=== PATIENT | female | born 1960 | race African-American/Black ===

== ENCOUNTER 2016-11-15 00:30 | Inpatient (IN) | payer MEDICAID ==
[~2016-11-15] VITALS: Ht 170.2 cm; Wt 153.3 kg
[2016-11-15] VITALS (7 sets, daily range): BP systolic 111–176; BP diastolic 29–124
[2016-11-15] MEDS ORDERED: MORPHINE SULFATE 4 MG/ML CPJ (NOT FOR IM USE) IV STA (01:33)
[2016-11-15] MEDS ORDERED: ONDANSETRON HCL 4MG/2ML VIAL IV STA (01:33)
[2016-11-15 01:55] LABS: BASOPHILS % 0.2 % (0.0-2.0); EOSINOPHILS % 1.2 % (0.0-5.0); HEMATOCRIT. 32.8 % (36.0-48.0); HEMOGLOBIN. 10.4 g/dL (12.0-16.0); LYMPHOCYTES % 7.2 % (20.0-50.0); MEAN CORPUSCULAR HEMOGLOBIN 27.3 pg (28.0-32.0); MEAN CORPUSCULAR VOLUME 86.1 fL (81.0-99.0); MONOCYTES % 6.2 % (2.0-8.0); NEUTROPHILS % 85.2 % (40.0-76.0); PLATELET 261 x1000/uL (130-400); RED BLOOD CELL COUNT 3.81 mill/uL (4.2-5.4); RED CELL DISTRIBUTION WIDTH 19.2 % (11.6-14.6)
[2016-11-15 02:14] LABS: CARBON DIOXIDE 26 mEq/L (21-32); CHLORIDE 107 mEq/L (98-107); TROPONIN I 0.12 ng/mL (0.00-0.04)
[2016-11-15] MEDS ORDERED: VANCOMYCIN 1 G PREMIX 200 ML IV NR (02:45)
[2016-11-15] MEDS ORDERED: PIPERACILLIN/TAZ 3.375G PREMIX 50 ML IV NR (02:45)
[2016-11-15 03:34] LABS: BG BASE EXCESS -1.6 mmol/L (-2.0-2.0); BG CARBOXYHEMOGLOBIN 1.7 % (0.5-1.5); BG DEOXYHEMOGLOBIN 13.2 % (0.0-5.0); BG FRACTION INSPIRED OXYGEN 36; BG HCO3 ACT 25.5 mmol/L (22.0-26.0); BG METHEMOGLOBIN 0.3 % (0.0-1.5); BG OXYGEN SATURATION 86.5 % (92.0-98.5); BG OXYHEMOGLOBIN 84.8 % (94.0-97.0); BG PH 7.292 (7.350-7.450); BG PO2 58.8 mmHg (75.0-100.0); BG SAMPLE SITE RIGHT BRACHIAL; BG TOTAL HEMOGLOBIN 11.4 g/dL (12.0-18.0); BG VENT MODE MASK - VENTI
[2016-11-15 09:38] LABS: GLUCOSE URINE NEGATIVE (NEGATIVE); KETONES URINE NEGATIVE (NEGATIVE); LEUKOCYTE ESTERASE URINE 1+ (NEGATIVE); NITRITE URINE POSITIVE (NEGATIVE); OCCULT BLOOD URINE 1+ (NEGATIVE); PROTEIN URINE 3+ (NEGATIVE); SPECIFIC GRAVITY URINE 1.016 (1.005-1.030); UROBILINOGEN URINE 0.2 E.U./dL (0.2-1.0)
[2016-11-15 09:41] LABS: CLARITY URINE HAZY (CLEAR); COLOR URINE YELLOW (YELLOW)
[2016-11-15] MEDS ORDERED: FUROSEMIDE 40MG/4ML VIAL IVP SCH (10:00)
[2016-11-15 10:35] LABS: BG BASE EXCESS 2.1 mmol/L (-2.0-2.0); BG BILEVEL POS AIRWAY PRESSURE 15/5; BG CARBOXYHEMOGLOBIN 1.1 % (0.5-1.5); BG DEOXYHEMOGLOBIN 3.6 % (0.0-5.0); BG FRACTION INSPIRED OXYGEN 50; BG HCO3 ACT 30.5 mmol/L (22.0-26.0); BG METHEMOGLOBIN 0.1 % (0.0-1.5); BG OXYGEN SATURATION 96.4 % (92.0-98.5); BG OXYHEMOGLOBIN 95.2 % (94.0-97.0); BG PCO2 68.3 mmHg (35.0-45.0); BG PH 7.268 (7.350-7.450); BG PO2 96.6 mmHg (75.0-100.0); BG SAMPLE SITE RIGHT RADIAL; BG TOTAL HEMOGLOBIN 11.4 g/dL (12.0-18.0); BG VENT MODE MASK - BIPAP; BG VENT RATE 16 set
[2016-11-15] MEDS ORDERED: MAGNESIUM/ALUMINUM HYDROXIDE/SIMETHICONE 30ML UDC PO PRN (11:30)
[2016-11-15] MEDS ORDERED: DOCUSATE SODIUM 100MG CAPSULE PO PRN (11:30)
[2016-11-15] MEDS ORDERED: ACETAMINOPHEN 325MG TABLET PO PRN (11:30)
[2016-11-15] MEDS ORDERED: ONDANSETRON HCL 4MG/2ML VIAL IV PRN (11:30)
[2016-11-15] MEDS ORDERED: IPRATROPIUM/ALBUTEROL 0.5-3(2.5)MG/3ML NEB INH PRN (11:30)
[2016-11-15 13:03] LABS: HEPATITIS B SURFACE ANTIGEN NEGATIVE
[2016-11-15 13:31] LABS: HEPATITIS B CORE AB IGM NEGATIVE
[2016-11-15 13:33] LABS: HEPATITIS A AB IGM NEGATIVE (NEGATIVE)
[2016-11-15 14:36] LABS: *AMPHETAMINES SCREEN URINE NEGATIVE (NEGATIVE); *BARBITURATES SCREEN URINE NEGATIVE (NEGATIVE); *BENZODIAZEPINES SCREEN URINE NEGATIVE (NEGATIVE); *COCAINE SCREEN URINE NEGATIVE (NEGATIVE); CANNABINOID URINE SCREEN NEGATIVE (NEGATIVE); METHADONE URINE SCREEN NEGATIVE (NEGATIVE); OPIATES URINE SCREEN PRESUMTIVE POSITIVE (NEGATIVE); PHENCYCLIDINE URINE SCREEN NEGATIVE (NEGATIVE)
[2016-11-15] MEDS: METHYLPREDNISOLONE SOD SUCC 40 MG/ML VIAL IV SCH ×2 (15:23→21:35)
[2016-11-15] MEDS: AZITHROMYCIN 500 MG TABLET PO SCH (15:23)
[2016-11-15] MEDS: LISINOPRIL 10MG TABLET PO SCH (15:24)
[2016-11-15] MEDS: ENOXAPARIN 40MG/0.4ML SYR SUBCUT SCH (15:25)
[2016-11-15] MEDS ORDERED: LEVOFLOXACIN 750MG PREMIX 150 ML IV SCH (16:00)
[2016-11-15] MEDS: FUROSEMIDE 40MG/4ML VIAL IVP SCH (17:50)
[2016-11-15 17:55] LABS: BG BASE EXCESS 2.5 mmol/L (-2.0-2.0); BG BILEVEL POS AIRWAY PRESSURE 18/8; BG CARBOXYHEMOGLOBIN 0.7 % (0.5-1.5); BG DEOXYHEMOGLOBIN 7.5 % (0.0-5.0); BG FRACTION INSPIRED OXYGEN 40; BG HCO3 ACT 29.6 mmol/L (22.0-26.0); BG METHEMOGLOBIN 0.3 % (0.0-1.5); BG OXYGEN SATURATION 92.4 % (92.0-98.5); BG OXYHEMOGLOBIN 91.5 % (94.0-97.0); BG PCO2 57.9 mmHg (35.0-45.0); BG PH 7.326 (7.350-7.450); BG PO2 68.5 mmHg (75.0-100.0); BG SAMPLE SITE RIGHT BRACHIAL; BG TOTAL HEMOGLOBIN 11.7 g/dL (12.0-18.0); BG VENT MODE MASK - BIPAP; BG VENT RATE 20 set
[2016-11-15] MEDS ORDERED: DEXTROSE 50% WATER 50ML SYRINGE IV PRN (19:30)
[2016-11-15] MEDS: IPRATROPIUM/ALBUTEROL 0.5-3(2.5)MG/3ML NEB HHN SCH ×2 (19:30→23:40)
[2016-11-15] MEDS: CLONIDINE 0.1MG TABLET PO PRN (21:00)
[2016-11-15] MEDS: BLOOD SUGAR DIAGNOSTIC STRIP TEST SCH (21:10)
[2016-11-15] MEDS: HYDROCODONE/ACETAMINOPHEN 5/325MG TABLET PO PRN (21:24)
[2016-11-15 21:28] LABS: CREATINE KINASE MB FRACTION 2.3 ng/mL (0.5-3.6); TROPONIN I 0.33 ng/mL (0.00-0.04)
[2016-11-15] MEDS: INSULIN LISPRO 100 UNITS/ML SUBCUT SCH (21:28)
[2016-11-16] VITALS (13 sets, daily range): BP systolic 106–166; BP diastolic 50–115
[2016-11-16] MEDS: CLONIDINE 0.1MG TABLET PO PRN (02:19)
[2016-11-16] MEDS: IPRATROPIUM/ALBUTEROL 0.5-3(2.5)MG/3ML NEB HHN SCH ×4 (03:57→17:02)
[2016-11-16] MEDS: METHYLPREDNISOLONE SOD SUCC 40 MG/ML VIAL IV SCH ×3 (05:58→21:55)
[2016-11-16] MEDS: FUROSEMIDE 40MG/4ML VIAL IVP SCH ×2 (05:58→17:31)
[2016-11-16] MEDS: ENOXAPARIN 40MG/0.4ML SYR SUBCUT SCH ×2 (05:59→17:31)
[2016-11-16 06:58] LABS: BASOPHILS % 0.2 % (0.0-2.0); HEMATOCRIT. 32.5 % (36.0-48.0); HEMOGLOBIN. 10.2 g/dL (12.0-16.0); LYMPHOCYTES % 7.4 % (20.0-50.0); MEAN CORPUSCULAR HEMOGLOBIN 27.4 pg (28.0-32.0); MEAN CORPUSCULAR VOLUME 86.9 fL (81.0-99.0); MEAN PLATELET VOLUME 8.8 fl (7.4-10.4); MONOCYTES % 2.4 % (2.0-8.0); PLATELET 274 x1000/uL (130-400); RED BLOOD CELL COUNT 3.74 mill/uL (4.2-5.4); RED CELL DISTRIBUTION WIDTH 18.5 % (11.6-14.6)
[2016-11-16 07:09] LABS: CHLORIDE 106 mEq/L (98-107)
[2016-11-16] MEDS: BLOOD SUGAR DIAGNOSTIC STRIP TEST SCH ×4 (07:30→20:59)
[2016-11-16 07:33] LABS: CARBON DIOXIDE 27 mEq/L (21-32); HDL CHOLESTEROL 58 mg/dL (40-59); LDL CHOLESTEROL 122 mg/dL (5-100)
[2016-11-16 07:33] LABS: BG BASE EXCESS 4.5 mmol/L (-2.0-2.0); BG BILEVEL POS AIRWAY PRESSURE 18/8; BG CARBOXYHEMOGLOBIN 0.5 % (0.5-1.5); BG DEOXYHEMOGLOBIN 4.6 % (0.0-5.0); BG HCO3 ACT 31.5 mmol/L (22.0-26.0); BG METHEMOGLOBIN 0.1 % (0.0-1.5); BG OXYGEN SATURATION 95.4 % (92.0-98.5); BG OXYHEMOGLOBIN 94.8 % (94.0-97.0); BG PCO2 59.4 mmHg (35.0-45.0); BG PH 7.342 (7.350-7.450); BG PO2 79.4 mmHg (75.0-100.0); BG SAMPLE SITE RIGHT BRACHIAL; BG VENT MODE MASK - BIPAP; BG VENT RATE 20 set
[2016-11-16] MEDS: AZITHROMYCIN 500 MG TABLET PO SCH (11:36)
[2016-11-16] MEDS: INSULIN LISPRO 100 UNITS/ML SUBCUT SCH ×4 (11:36→21:09)
[2016-11-16] MEDS: ASPIRIN 81MG EC TABLET PO SCH (11:36)
[2016-11-16] MEDS: LISINOPRIL 10MG TABLET PO SCH (11:39)
[2016-11-16] MEDS: LEVOFLOXACIN 750MG PREMIX 150 ML IV SCH (20:59)
[2016-11-17] VITALS (12 sets, daily range): BP systolic 93–217; BP diastolic 47–115
[2016-11-17] MEDS: IPRATROPIUM/ALBUTEROL 0.5-3(2.5)MG/3ML NEB HHN SCH ×6 (00:40→21:16)
[2016-11-17] MEDS: CLONIDINE 0.1MG TABLET PO PRN (03:55)
[2016-11-17] MEDS: ENOXAPARIN 40MG/0.4ML SYR SUBCUT SCH ×2 (05:14→17:41)
[2016-11-17] MEDS: METHYLPREDNISOLONE SOD SUCC 40 MG/ML VIAL IV SCH ×3 (05:14→22:20)
[2016-11-17] MEDS: FUROSEMIDE 40MG/4ML VIAL IVP SCH ×2 (05:14→17:38)
[2016-11-17 07:15] LABS: CHLORIDE 101 mEq/L (98-107)
[2016-11-17 07:23] LABS: BASOPHILS % 0.2 % (0.0-2.0); HEMATOCRIT. 32.4 % (36.0-48.0); HEMOGLOBIN. 10.2 g/dL (12.0-16.0); LYMPHOCYTES % 8.9 % (20.0-50.0); MEAN CORPUSCULAR HEMOGLOBIN 26.8 pg (28.0-32.0); MEAN CORPUSCULAR VOLUME 85.1 fL (81.0-99.0); MEAN PLATELET VOLUME 9.3 fl (7.4-10.4); MONOCYTES % 3.7 % (2.0-8.0); NEUTROPHILS % 87.2 % (40.0-76.0); PLATELET 307 x1000/uL (130-400); RED BLOOD CELL COUNT 3.81 mill/uL (4.2-5.4); RED CELL DISTRIBUTION WIDTH 19.2 % (11.6-14.6)
[2016-11-17] MEDS: BLOOD SUGAR DIAGNOSTIC STRIP TEST SCH ×4 (07:30→20:53)
[2016-11-17 07:34] LABS: CARBON DIOXIDE 27 mEq/L (21-32); CREATINE KINASE 465 IU/L (26-192); CREATINE KINASE MB FRACTION 2.3 ng/mL (0.5-3.6); TROPONIN I 0.11 ng/mL (0.00-0.04)
[2016-11-17] MEDS: LISINOPRIL 10MG TABLET PO SCH (08:50)
[2016-11-17] MEDS: AZITHROMYCIN 500 MG TABLET PO SCH (08:50)
[2016-11-17] MEDS: ASPIRIN 81MG EC TABLET PO SCH (08:50)
[2016-11-17] MEDS: INSULIN LISPRO 100 UNITS/ML SUBCUT SCH ×4 (08:50→21:08)
[2016-11-17] MEDS ORDERED: DEXTROSE 50% WATER 50ML SYRINGE IV PRN (10:00)
[2016-11-17] MEDS ORDERED: CLONIDINE 0.2MG TABLET PO PRN (10:00)
[2016-11-17] MEDS ORDERED: CLONIDINE 0.1MG TABLET PO PRN (10:30)
[2016-11-17] MEDS: LOSARTAN POTASSIUM 25 MG TABLET PO SCH ×2 (10:42→20:49)
[2016-11-17] MEDS: AMLODIPINE 2.5MG TABLET PO SCH ×3 (10:42→21:00)
[2016-11-17] MEDS: HYDROCODONE/ACETAMINOPHEN 5/325MG TABLET PO PRN ×2 (11:49→20:52)
[2016-11-17] MEDS ORDERED: BLOOD SUGAR DIAGNOSTIC STRIP TEST SCH (12:30)
[2016-11-17] MEDS ORDERED: INSULIN LISPRO 100 UNITS/ML SUBCUT SCH (13:00)
[2016-11-17] MEDS: HYDRALAZINE 20MG/ML VIAL IV PRN (13:17)
[2016-11-17] MEDS: LEVOFLOXACIN 750MG PREMIX 150 ML IV SCH (17:36)
[2016-11-17] MEDS: GUAIFENESIN-DM 200MG-20MG/10ML UDC PO PRN (20:51)
[2016-11-17] MEDS ORDERED: INSULIN LISPRO 100 UNITS/ML SUBCUT NR (21:30)
[2016-11-18] VITALS (11 sets, daily range): BP systolic 124–174; BP diastolic 60–96
[2016-11-18] MEDS: GUAIFENESIN-DM 200MG-20MG/10ML UDC PO PRN (01:08)
[2016-11-18] MEDS: IPRATROPIUM/ALBUTEROL 0.5-3(2.5)MG/3ML NEB HHN SCH ×5 (01:10→16:49)
[2016-11-18] MEDS: FUROSEMIDE 40MG/4ML VIAL IVP SCH ×2 (05:44→17:27)
[2016-11-18] MEDS: METHYLPREDNISOLONE SOD SUCC 40 MG/ML VIAL IV SCH ×2 (05:44→13:43)
[2016-11-18] MEDS: ENOXAPARIN 40MG/0.4ML SYR SUBCUT SCH ×2 (05:45→17:36)
[2016-11-18] MEDS: BLOOD SUGAR DIAGNOSTIC STRIP TEST SCH ×3 (07:30→17:27)
[2016-11-18 07:31] LABS: BASOPHILS % 0.3 % (0.0-2.0); EOSINOPHILS % 0.1 % (0.0-5.0); HEMATOCRIT. 34.7 % (36.0-48.0); HEMOGLOBIN. 11.1 g/dL (12.0-16.0); LYMPHOCYTES % 8.6 % (20.0-50.0); MEAN CORPUSCULAR HEMOGLOBIN 27.5 pg (28.0-32.0); MEAN CORPUSCULAR VOLUME 85.9 fL (81.0-99.0); MEAN PLATELET VOLUME 9.1 fl (7.4-10.4); MONOCYTES % 4.8 % (2.0-8.0); NEUTROPHILS % 86.2 % (40.0-76.0); PLATELET 341 x1000/uL (130-400); RED BLOOD CELL COUNT 4.05 mill/uL (4.2-5.4); RED CELL DISTRIBUTION WIDTH 18.5 % (11.6-14.6)
[2016-11-18 07:33] LABS: CHLORIDE 102 mEq/L (98-107)
[2016-11-18 08:13] LABS: CARBON DIOXIDE 28 mEq/L (21-32)
[2016-11-18] MEDS: ASPIRIN 81MG EC TABLET PO SCH (09:48)
[2016-11-18] MEDS: LOSARTAN POTASSIUM 25 MG TABLET PO SCH (09:48)
[2016-11-18] MEDS: AZITHROMYCIN 500 MG TABLET PO SCH (09:48)
[2016-11-18] MEDS: AMLODIPINE 2.5MG TABLET PO SCH (09:49)
[2016-11-18] MEDS: INSULIN LISPRO 100 UNITS/ML SUBCUT SCH ×3 (09:50→17:38)
[2016-11-18] MEDS ORDERED: MAGNESIUM OXIDE 400MG TABLET PO SCH (11:00)
[2016-11-18] MEDS ORDERED: CEFTRIAXONE 1 G PREMIX 50 ML IV SCH (12:00)
[2016-11-18] MEDS: HYDRALAZINE 20MG/ML VIAL IV PRN (13:44)
[2016-11-18] MEDS: PREDNISONE 20MG TABLET PO SCH ×2 (15:44→17:35)
[2016-11-18] MEDS ORDERED: MAGNESIUM 2 G PREMIX 50 ML IV NR (16:00)
[2016-11-18] MEDS ORDERED: LOSARTAN POTASSIUM 50 MG TABLET PO SCH (21:00)
[2016-11-18] MEDS ORDERED: AMLODIPINE 5MG TABLET PO SCH (21:00)
== END 2016-11-18 20:49 | disposition home or self-care (01) | DRG 720 ==
LOC: ER 00:42 → 5EST 04:44 → EDBEDREQ 04:57 → EDBEDREQSVC 05:46 → EDBEDREQTM 05:46 → ENRESERV 13:00
PROVIDERS: ADMIT Internal Medicine; ATTEND Internal Medicine
PROC: 5A09357 Assistance with Respiratory Ventilation, Less than 24 Consecutive Hours, Continuous Positive Airway Pressure (ICD-10-PCS; principal; 2016-11-15)
DX: A41.59 Other Gram-negative sepsis (principal); J96.01 Acute respiratory failure with hypoxia; I50.33 Acute on chronic diastolic (congestive) heart failure; E43 Unspecified severe protein-calorie malnutrition; J96.02 Acute respiratory failure with hypercapnia; J12.9 Viral pneumonia, unspecified; J18.9 Pneumonia, unspecified organism; I07.1 Rheumatic tricuspid insufficiency; I11.0 Hypertensive heart disease with heart failure; Z68.43 Body mass index [BMI] 50.0-59.9, adult; E11.649 Type 2 diabetes mellitus with hypoglycemia without coma; J44.0 Chronic obstructive pulmonary disease with (acute) lower respiratory infection; J44.1 Chronic obstructive pulmonary disease with (acute) exacerbation; N39.0 Urinary tract infection, site not specified; E11.65 Type 2 diabetes mellitus with hyperglycemia; E66.2 Morbid (severe) obesity with alveolar hypoventilation; E78.00 Pure hypercholesterolemia, unspecified; E78.5 Hyperlipidemia, unspecified; F17.210 Nicotine dependence, cigarettes, uncomplicated; G89.29 Other chronic pain; M54.30 Sciatica, unspecified side; Z85.3 Personal history of malignant neoplasm of breast; Z90.10 Acquired absence of unspecified breast and nipple
CPT/HCPCS: 36415; 36600; 71010; 76705; 80048; 80053; 80061; 80305; 81001; 81025; 82375; 82550; 82553; 82805; 82962; 83036; 83540; 83550; 83605; 83690; 83735; 83880; 84443; 84484; 85025; 85044; 85379; 86705; 86709; 86803; 87040; 87077; 87086; 87186; 87340; 93005; 93306; 93970; 94640; 94660; 94664; 96365; 96367; 96375; 97162; 99285; J0360; J0696; J1650; J1815; J1940; J1956; J2270; J2405; J2543; J2920; J3370; J3475; J7050; J7512; J7620

== ENCOUNTER 2017-12-23 03:34 | Inpatient (IN) | payer MEDICAID ==
[~2017-12-23] VITALS: Ht 170.2 cm; Wt 125.6 kg
[2017-12-23] VITALS (9 sets, daily range): BP systolic 97–134; BP diastolic 52–89
[~2017-12-23 03:34] MED LIST: METF-416 PO
[2017-12-23] MEDS ORDERED: ONDANSETRON HCL 4MG/2ML INJ IV STA (03:40)
[2017-12-23] MEDS ORDERED: FUROSEMIDE 40MG/4ML VIAL IV ONE (03:45)
[2017-12-23] MEDS ORDERED: NITROGLYCERIN OINT 1GM/INCH UDPKT TD ONE (03:45)
[2017-12-23 04:48] LABS: BASOPHILS % 1.2 % (0.0-2.0); EOSINOPHILS % 4.9 % (0.0-5.0); HEMATOCRIT. 36.3 % (36.0-48.0); HEMOGLOBIN. 11.6 g/dL (12.0-16.0); LYMPHOCYTES % 20.7 % (20.0-50.0); MEAN CORPUSCULAR HEMOGLOBIN 27.4 pg (28.0-32.0); MEAN CORPUSCULAR VOLUME 85.9 fL (81.0-99.0); MEAN PLATELET VOLUME 8.7 fl (7.4-10.4); MONOCYTES % 5.5 % (2.0-8.0); NEUTROPHILS % 67.7 % (40.0-76.0); PLATELET 287 x1000/uL (130-400); RED BLOOD CELL COUNT 4.23 mill/uL (4.2-5.4); RED CELL DISTRIBUTION WIDTH 15.9 % (11.6-14.6)
[2017-12-23 05:00] LABS: CHLORIDE 109 mEq/L (98-107)
[2017-12-23 06:16] LABS: BG BASE EXCESS 0.3 mmol/L (-2.0-2.0); BG BILEVEL POS AIRWAY PRESSURE 15/5; BG CARBOXYHEMOGLOBIN 2.2 % (0.5-1.5); BG DEOXYHEMOGLOBIN 1.3 % (0.0-5.0); BG FRACTION INSPIRED OXYGEN 50; BG HCO3 ACT 25.6 mmol/L (22.0-26.0); BG METHEMOGLOBIN 0.2 % (0.0-1.5); BG OXYGEN SATURATION 98.7 % (92.0-98.5); BG OXYHEMOGLOBIN 96.3 % (94.0-97.0); BG PCO2 43.7 mmHg (35.0-45.0); BG PH 7.385 (7.350-7.450); BG PO2 144.7 mmHg (75.0-100.0); BG SAMPLE SITE RIGHT RADIAL; BG TOTAL HEMOGLOBIN 12.2 g/dL (12.0-18.0); BG VENT MODE MASK - BIPAP
[2017-12-23] MEDS ORDERED: DEXTROSE 50% WATER 50ML SYRINGE IV PRN (10:00)
[2017-12-23] MEDS ORDERED: ONDANSETRON HCL 4MG/2ML INJ IV PRN (10:00)
[2017-12-23 10:54] LABS: T4 FREE 1.5 ng/dL (0.76-1.46)
[2017-12-23] MEDS ORDERED: PNEUMOCOCCAL 23-VAL P-SAC VAC 0.5 ML IM ONE (11:00)
[2017-12-23] MEDS ORDERED: INFLUENZA VIRUS VACCINE(AFLURIA) 0.5ML SYR IM ONE (11:00)
[2017-12-23] MEDS: FUROSEMIDE 100MG/10ML VIAL IVP SCH ×2 (11:08→16:25)
[2017-12-23] MEDS: CARVEDILOL 6.25 MG TABLET PO SCH ×2 (11:09→21:47)
[2017-12-23] MEDS: INSULIN LISPRO 100 UNITS/ML SUBCUT SCH ×4 (11:29→21:45)
[2017-12-23] MEDS: BLOOD SUGAR DIAGNOSTIC STRIP TEST SCH ×3 (11:29→21:48)
[2017-12-23] MEDS: POTASSIUM CHLORIDE 20MEQ TABLET SR PO SCH ×2 (11:39→16:24)
[2017-12-23] MEDS ORDERED: IPRATROPIUM/ALBUTEROL 0.5-3(2.5)MG/3ML NEB HHN PRN (13:15)
[2017-12-23 15:29] LABS: *AMPHETAMINES SCREEN URINE NEGATIVE (NEGATIVE); *BARBITURATES SCREEN URINE NEGATIVE (NEGATIVE); *BENZODIAZEPINES SCREEN URINE NEGATIVE (NEGATIVE); *COCAINE SCREEN URINE NEGATIVE (NEGATIVE); CANNABINOID URINE SCREEN NEGATIVE (NEGATIVE); METHADONE URINE SCREEN NEGATIVE (NEGATIVE); OPIATES URINE SCREEN NEGATIVE (NEGATIVE); PHENCYCLIDINE URINE SCREEN NEGATIVE (NEGATIVE)
[2017-12-23] MEDS ORDERED: ATORVASTATIN CALCIUM 40MG TABLET PO SCH (21:00)
[2017-12-24] VITALS (8 sets, daily range): BP systolic 99–153; BP diastolic 56–79
[2017-12-24] MEDS: IPRATROPIUM/ALBUTEROL 0.5-3(2.5)MG/3ML NEB HHN SCH ×3 (01:14→15:18)
[2017-12-24 05:56] LABS: BASOPHILS % 0.5 % (0.0-2.0); EOSINOPHILS % 8.3 % (0.0-5.0); HEMATOCRIT. 36.4 % (36.0-48.0); HEMOGLOBIN. 11.6 g/dL (12.0-16.0); LYMPHOCYTES % 27.2 % (20.0-50.0); MEAN CORPUSCULAR HEMOGLOBIN 27.3 pg (28.0-32.0); MEAN CORPUSCULAR VOLUME 85.4 fL (81.0-99.0); MEAN PLATELET VOLUME 9.1 fl (7.4-10.4); MONOCYTES % 8.1 % (2.0-8.0); NEUTROPHILS % 55.9 % (40.0-76.0); PLATELET 291 x1000/uL (130-400); RED BLOOD CELL COUNT 4.26 mill/uL (4.2-5.4); RED CELL DISTRIBUTION WIDTH 16.4 % (11.6-14.6)
[2017-12-24 06:00] LABS: CHLORIDE 105 mEq/L (98-107)
[2017-12-24] MEDS: BLOOD SUGAR DIAGNOSTIC STRIP TEST SCH ×2 (06:36→11:19)
[2017-12-24] MEDS: INSULIN LISPRO 100 UNITS/ML SUBCUT SCH ×2 (06:37→11:24)
[2017-12-24] MEDS: FUROSEMIDE 100MG/10ML VIAL IVP SCH (06:38)
[2017-12-24] MEDS: CARVEDILOL 6.25 MG TABLET PO SCH (08:58)
[2017-12-24] MEDS: POTASSIUM CHLORIDE 20MEQ TABLET SR PO SCH (08:58)
[2017-12-24] MEDS ORDERED: LOSARTAN POTASSIUM 50 MG TABLET PO SCH (10:00)
[2017-12-24] MEDS ORDERED: FUROSEMIDE 100MG/10ML VIAL IVP SCH (17:15)
== END 2017-12-24 16:00 | disposition left against medical advice (07) | DRG 133 ==
LOC: ER 03:34 → 3WST 05:06 → EDBEDREQTM 05:12 → EDBEDREQSVC 05:12 → EDBEDREQ 05:12 → ENRESERV 07:03
PROVIDERS: ADMIT Internal Medicine; ATTEND Internal Medicine
PROC: 5A09357 Assistance with Respiratory Ventilation, Less than 24 Consecutive Hours, Continuous Positive Airway Pressure (ICD-10-PCS; principal; 2017-12-23)
DX: J96.00 Acute respiratory failure, unspecified whether with hypoxia or hypercapnia (principal); I50.43 Acute on chronic combined systolic (congestive) and diastolic (congestive) heart failure; E44.1 Mild protein-calorie malnutrition; E66.01 Morbid (severe) obesity due to excess calories; I11.0 Hypertensive heart disease with heart failure; E11.9 Type 2 diabetes mellitus without complications; E87.8 Other disorders of electrolyte and fluid balance, not elsewhere classified; E78.5 Hyperlipidemia, unspecified; E87.6 Hypokalemia; I25.10 Atherosclerotic heart disease of native coronary artery without angina pectoris; I25.5 Ischemic cardiomyopathy; J45.909 Unspecified asthma, uncomplicated; F17.200 Nicotine dependence, unspecified, uncomplicated; G47.33 Obstructive sleep apnea (adult) (pediatric); I49.3 Ventricular premature depolarization; Z92.21 Personal history of antineoplastic chemotherapy; I25.2 Old myocardial infarction; Z92.3 Personal history of irradiation; Z85.3 Personal history of malignant neoplasm of breast; Z68.41 Body mass index [BMI] 40.0-44.9, adult
CPT/HCPCS: 36415; 36600; 71045; 80048; 80305; 82375; 82805; 82962; 83605; 83880; 84439; 84481; 84484; 90686; 90732; 93005; 94640; 96374; 96375; 99291; J1815; J1940; J2405; J7620

== ENCOUNTER 2018-01-11 03:49 | Emergency (ER) | payer MEDICAID ==
[~2018-01-11] VITALS: Ht 170.2 cm; Wt 125.0 kg
[2018-01-11] MEDS ORDERED: METHYLPREDNISOLONE SOD SUCC 125 MG/2 ML VIAL IV STA (04:17)
[2018-01-11] MEDS ORDERED: IPRATROPIUM BROMIDE (0.02%) 0.5MG/2.5ML NEB HHN STA (04:17)
[2018-01-11] MEDS ORDERED: ALBUTEROL (0.083%) 2.5MG/3ML NEB HHN STA (04:17)
[2018-01-11] MEDS ORDERED: MAGNESIUM 2 G PREMIX 50 ML IV ONE (04:30)
[2018-01-11 05:10] LABS: CHLORIDE 106 mEq/L (98-107)
[2018-01-11 05:19] LABS: BASOPHILS % 0.5 % (0.0-2.0); EOSINOPHILS % 3.9 % (0.0-5.0); HEMATOCRIT. 35.4 % (36.0-48.0); HEMOGLOBIN. 11.1 g/dL (12.0-16.0); LYMPHOCYTES % 16.7 % (20.0-50.0); MEAN CORPUSCULAR HEMOGLOBIN 26.4 pg (28.0-32.0); MEAN CORPUSCULAR VOLUME 84.3 fL (81.0-99.0); MEAN PLATELET VOLUME 9.3 fl (7.4-10.4); MONOCYTES % 4.1 % (2.0-8.0); NEUTROPHILS % 74.8 % (40.0-76.0); PLATELET 300 x1000/uL (130-400); RED CELL DISTRIBUTION WIDTH 16.4 % (11.6-14.6)
[2018-01-11] MEDS ORDERED: ASPIRIN 81MG TABLET PO ONE (05:30)
[2018-01-11] MEDS ORDERED: FUROSEMIDE 20MG/2ML VIAL IVP ONE (05:30)
[2018-01-11 08:00] VITALS: BP 140/82
== END 2018-01-11 08:29 | disposition left against medical advice (07) ==
LOC: ER 03:49 → EDBEDREQ 05:48 → EDBEDREQTM 05:48 → ENRESERV 07:04 → CANRESERV 07:04 → CANBEDREQ 07:46 → ER 08:29
DX: I50.9 Heart failure, unspecified (principal); R06.00 Dyspnea, unspecified; J45.909 Unspecified asthma, uncomplicated; E11.9 Type 2 diabetes mellitus without complications; I25.2 Old myocardial infarction; Z85.3 Personal history of malignant neoplasm of breast; Z79.82 Long term (current) use of aspirin; Z98.51 Tubal ligation status
CPT/HCPCS: 36415; 71045; 80053; 83605; 83880; 84484; 85025; 93005; 96365; 96366; 96375; 99291; J1940; J2930; J3475; J7611

== ENCOUNTER 2018-04-11 03:37 | Emergency (ER) | payer MEDICAID ==
[~2018-04-11] VITALS: Ht 172.7 cm; Wt 123.0 kg
[~2018-04-11 03:37] MED LIST changes: +ASPI-1159 PO; +ATOR40TA70 PO; +BUPR150T9 PO; +CARV3.1242 PO; +CLOT10TR2 MM; +DOCU-286 PO; +EMPA10TA PO; +FURO40TA5 PO; +LEVO200T8 PO; +LORA10TA7 PO; +MONT10TA24 PO; +TAGALUD PO
[2018-04-11] MEDS ORDERED: SODIUM CHLORIDE 0.9% 1,000 ML IV ONE (04:23)
[2018-04-11] MEDS ORDERED: ASPIRIN 81MG TABLET PO ONE (04:30)
[2018-04-11] MEDS ORDERED: NITROGLYCERIN OINT 1GM/INCH UDPKT TD ONE (04:30)
[2018-04-11 04:43] LABS: BASOPHILS % 1.1 % (0.0-2.0); EOSINOPHILS % 4.4 % (0.0-5.0); HEMATOCRIT. 39.5 % (36.0-48.0); HEMOGLOBIN. 12.3 g/dL (12.0-16.0); LYMPHOCYTES % 28.6 % (20.0-50.0); MEAN CORPUSCULAR HEMOGLOBIN 25.9 pg (28.0-32.0); MEAN CORPUSCULAR VOLUME 82.8 fL (81.0-99.0); MEAN PLATELET VOLUME 8.5 fl (7.4-10.4); MONOCYTES % 6.7 % (2.0-8.0); NEUTROPHILS % 59.2 % (40.0-76.0); PLATELET 290 x1000/uL (130-400); RED BLOOD CELL COUNT 4.76 mill/uL (4.2-5.4)
[2018-04-11 04:51] LABS: CHLORIDE 105 mEq/L (98-107)
[2018-04-11 04:57] LABS: INR 0.9; PROTHROMBIN TIME 9.4 sec (9.1-11.1)
[2018-04-11] MEDS ORDERED: MORPHINE SULFATE 10 MG/ML CPJ IV ONE (06:15)
[2018-04-11] MEDS ORDERED: ONDANSETRON HCL 4MG/2ML INJ IV ONE (06:15)
[2018-04-11] MEDS ORDERED: EPINEPHRINE 0.1MG/ML (1:10,000) 10ML SYR ONE (06:51)
[2018-04-11 07:00] VITALS: BP 126/77
== END 2018-04-11 07:00 | disposition short-term general hospital (02) ==
LOC: ER 03:37 → CANBEDREQ 17:44
DX: I21.3 ST elevation (STEMI) myocardial infarction of unspecified site (principal); I25.2 Old myocardial infarction; J45.909 Unspecified asthma, uncomplicated; Z98.890 Other specified postprocedural states; Z98.51 Tubal ligation status; Z79.899 Other long term (current) drug therapy
CPT/HCPCS: 36415; 71045; 80053; 83880; 84484; 85025; 85610; 93005; 99291; J2270; J3490; J7030; J2405

== ENCOUNTER 2019-01-26 16:25 | Emergency (ER) | payer MEDICAID ==
[~2019-01-26] VITALS: Ht 167.6 cm; Wt 104.0 kg
[~2019-01-26 16:25] MED LIST changes: -ASPI-1159 PO; +ASPI-1393 PO
[2019-01-26] MEDS ORDERED: ACETAMINOPHEN 325MG TABLET PO ONE (17:45)
[2019-01-26 18:50] VITALS: BP 128/66
== END 2019-01-26 18:55 | disposition home or self-care (01) ==
LOC: ER 16:25
DX: R07.89 Other chest pain (principal); V49.49XA Driver injured in collision with other motor vehicles in traffic accident, initial encounter; Y93.89 Activity, other specified; Y92.89 Other specified places as the place of occurrence of the external cause; Y99.8 Other external cause status; J45.909 Unspecified asthma, uncomplicated; I25.2 Old myocardial infarction; Z98.890 Other specified postprocedural states; Z98.51 Tubal ligation status; C80.1 Malignant (primary) neoplasm, unspecified; Z79.82 Long term (current) use of aspirin; Z79.899 Other long term (current) drug therapy
CPT/HCPCS: 71045; 99283

== ENCOUNTER 2021-01-10 00:37 | Inpatient (IN) | payer MEDICAID, OTHER ==
[~2021-01-10] VITALS: Ht 167.6 cm; Wt 136.0 kg
[~2021-01-10 00:37] MED LIST changes: -ASPI-1393 PO; +ASPI-1497 PO; -MONT10TA24 PO; +MONT10TA32 PO
[2021-01-10] MEDS ORDERED: ALBUTEROL (0.083%) 2.5MG/3ML NEB HHN STA (00:44)
[2021-01-10] MEDS ORDERED: IPRATROPIUM BROMIDE (0.02%) 0.5MG/2.5ML NEB HHN STA (00:44)
[2021-01-10] MEDS ORDERED: METHYLPREDNISOLONE SOD SUCC 125 MG/2 ML VIAL IV STA (00:44)
[2021-01-10] MEDS ORDERED: ASPIRIN 81MG TABLET PO ONE (00:45)
[2021-01-10] MEDS ORDERED: MAGNESIUM 2 G PREMIX 50 ML IV ONE (00:45)
[2021-01-10 01:12] LABS: BASOPHILS % 0.5 % (0.0-2.0); EOSINOPHILS % 4.3 % (0.0-5.0); HEMATOCRIT. 40.5 % (36.0-48.0); HEMOGLOBIN. 12.9 g/dL (12.0-16.0); LYMPHOCYTES % 35.6 % (20.0-50.0); MEAN CORPUSCULAR HEMOGLOBIN 28.1 pg (28.0-32.0); MEAN CORPUSCULAR VOLUME 88.4 fL (81.0-99.0); MEAN PLATELET VOLUME 9.4 fl (7.4-10.4); MONOCYTES % 7.2 % (2.0-8.0); NEUTROPHILS % 52.4 % (40.0-76.0); PLATELET 204 x1000/uL (130-400); RED BLOOD CELL COUNT 4.58 mill/uL (4.2-5.4); RED CELL DISTRIBUTION WIDTH 16.2 % (11.6-14.6)
[2021-01-10 01:18] LABS: CHLORIDE 106 mEq/L (98-107)
[2021-01-10] MEDS ORDERED: PIPERACILLIN/TAZ 3.375G PREMIX 50 ML IV ONE (01:30)
[2021-01-10] MEDS ORDERED: VANCOMYCIN 1 G PREMIX 200 ML IV ONE (01:30)
[2021-01-10 01:43] LABS: PARTIAL THROMBOPLASTIN TIME 24.4 sec (23.4-31.0); PROTHROMBIN TIME 10.4 sec (9.6-11.0)
[2021-01-10] MEDS ORDERED: FUROSEMIDE 40MG/4ML VIAL IVP ONE (01:45)
[2021-01-10] MEDS ORDERED: MAGNESIUM/ALUMINUM HYDROXIDE/SIMETHICONE 30ML UDC PO PRN (07:00)
[2021-01-10] MEDS ORDERED: DOCUSATE SODIUM 100MG CAPSULE PO PRN (07:00)
[2021-01-10] MEDS ORDERED: ENOXAPARIN 40MG/0.4ML SYR SUBCUT SCH (07:00)
[2021-01-10] MEDS ORDERED: CLONIDINE 0.1MG TABLET PO PRN (07:00)
[2021-01-10] MEDS ORDERED: ACETAMINOPHEN 325MG TABLET PO PRN (07:00)
[2021-01-10] MEDS ORDERED: HYDROCODONE/ACETAMINOPHEN 5/325MG TABLET PO PRN (07:00)
[2021-01-10] MEDS ORDERED: ONDANSETRON HCL 4MG/2ML INJ IV PRN (07:00)
[2021-01-10] MEDS ORDERED: GUAIFENESIN 200MG/10ML SUGAR FREE UDC PO PRN (07:00)
[2021-01-10] MEDS ORDERED: NALOXONE HCL 0.4MG/ML VIAL IV PRN (07:15)
[2021-01-10] MEDS ORDERED: OMEPRAZOLE 20MG CAPSULE EXTENDED RELEASE PO SCH (07:30)
[2021-01-10] MEDS ORDERED: IPRATROPIUM/ALBUTEROL 0.5-3(2.5)MG/3ML NEB HHN SCH ×2 (08:00→20:00)
[2021-01-10] MEDS: ENOXAPARIN 30MG/0.3ML SYR SUBCUT SCH ×2 (08:54→21:48)
[2021-01-10] MEDS ORDERED: FUROSEMIDE 40MG/4ML VIAL IVP SCH (13:45)
[2021-01-10] MEDS ORDERED: LISINOPRIL 2.5MG TABLET PO SCH (13:45)
[2021-01-10] MEDS ORDERED: ALBUTEROL (0.5%) 2.5MG/0.5ML NEB HHN PRN (17:30)
[2021-01-10] MEDS ORDERED: CARVEDILOL 3.125 MG TABLET PO SCH (21:00)
[2021-01-10 21:15] VITALS: BP 129/63
[2021-01-11] MEDS ORDERED: ALBUTEROL 6.7GM HFA INHALER ORI SCH
== END 2021-01-10 23:20 | disposition left against medical advice (07) | DRG 194 ==
LOC: ER 00:37 → MICUSO 04:46 → 7WST 19:41
PROVIDERS: ADMIT Internal Medicine; ATTEND Internal Medicine
PROC: 5A09357 Assistance with Respiratory Ventilation, Less than 24 Consecutive Hours, Continuous Positive Airway Pressure (ICD-10-PCS; principal; 2021-01-10)
DX: I11.0 Hypertensive heart disease with heart failure (principal); J96.01 Acute respiratory failure with hypoxia; D84.9 Immunodeficiency, unspecified; I50.33 Acute on chronic diastolic (congestive) heart failure; I27.20 Pulmonary hypertension, unspecified; J44.1 Chronic obstructive pulmonary disease with (acute) exacerbation; I25.10 Atherosclerotic heart disease of native coronary artery without angina pectoris; E03.9 Hypothyroidism, unspecified; E11.9 Type 2 diabetes mellitus without complications; E66.01 Morbid (severe) obesity due to excess calories; I42.9 Cardiomyopathy, unspecified; Z20.822 Contact with and (suspected) exposure to COVID-19; G47.33 Obstructive sleep apnea (adult) (pediatric); F17.210 Nicotine dependence, cigarettes, uncomplicated; Z95.5 Presence of coronary angioplasty implant and graft; Z79.84 Long term (current) use of oral hypoglycemic drugs; Z79.899 Other long term (current) drug therapy; Z79.890 Hormone replacement therapy; Z79.82 Long term (current) use of aspirin; Z68.42 Body mass index [BMI] 45.0-49.9, adult; Z83.3 Family history of diabetes mellitus
CPT/HCPCS: 36415; 71045; 76700; 80053; 83605; 83880; 84484; 85025; 87426; 93005; 93970; 94640; 94660; 99291; J1650; J1940; J2543; J2930; J3370; J3475; U0003; U0005

== ENCOUNTER 2021-03-09 09:49 | Emergency (ER) | payer MEDICAID, OTHER ==
[~2021-03-09] VITALS: Ht 172.7 cm; Wt 82.0 kg
[2021-03-09] MEDS ORDERED: IPRATROPIUM/ALBUTEROL 0.5-3(2.5)MG/3ML NEB HHN ONE (10:15)
[2021-03-09] MEDS ORDERED: ALBUTEROL (0.083%) 2.5MG/3ML NEB ONE (10:27)
[2021-03-09] MEDS ORDERED: IPRATROPIUM BROMIDE (0.02%) 0.5MG/2.5ML NEB ONE (10:27)
[2021-03-09] MEDS ORDERED: FUROSEMIDE 40MG/4ML VIAL IVP ONE (10:45)
[2021-03-09 11:01] LABS: BASOPHILS % 0.3 % (0.0-2.0); HEMOGLOBIN. 12.6 g/dL (12.0-16.0); LYMPHOCYTES % 17.5 % (20.0-50.0); MEAN CORPUSCULAR HEMOGLOBIN 27.4 pg (28.0-32.0); MEAN CORPUSCULAR VOLUME 86.6 fL (81.0-99.0); MEAN PLATELET VOLUME 9.4 fl (7.4-10.4); MONOCYTES % 4.1 % (2.0-8.0); NEUTROPHILS % 76.1 % (40.0-76.0); PLATELET 190 x1000/uL (130-400); RED BLOOD CELL COUNT 4.62 mill/uL (4.2-5.4); RED CELL DISTRIBUTION WIDTH 15.9 % (11.6-14.6)
[2021-03-09 11:05] LABS: CHLORIDE 111 mEq/L (98-107)
[2021-03-09] MEDS ORDERED: ASPIRIN 325MG EC TABLET PO ONE (11:15)
[2021-03-09 12:05] VITALS: BP 132/69
== END 2021-03-09 12:14 | disposition left against medical advice (07) ==
LOC: ER 09:49 → CANBEDREQ 16:42
DX: I11.0 Hypertensive heart disease with heart failure (principal); I50.9 Heart failure, unspecified; I25.10 Atherosclerotic heart disease of native coronary artery without angina pectoris; J45.909 Unspecified asthma, uncomplicated; F17.210 Nicotine dependence, cigarettes, uncomplicated; Z20.822 Contact with and (suspected) exposure to COVID-19; Z79.82 Long term (current) use of aspirin
CPT/HCPCS: 36415; 71045; 80048; 83880; 84484; 85025; 87426; 94640; 94660; 99284; Z7610

== ENCOUNTER 2024-12-18 18:37 | Emergency (ER) | payer MEDICAID ==
[~2024-12-18] VITALS: Ht 162.6 cm; Wt 91.0 kg
[~2024-12-18 18:37] MED LIST changes: +ATOR-2 PO; +BUPR-114 PO; -BUPR150T9 PO; +CARV25TA47 PO; +CIME300S PO; +EZET-55; +LEVO125T8 PO; +MONT-39 PO; -MONT10TA32 PO; +OLME20TA68 PO; -TAGALUD PO
[2024-12-18 18:49] VITALS: TEMP 36.9; O2SAT 99
[2024-12-18] MEDS ORDERED: ACETAMINOPHEN 325MG TABLET PO ONE (19:30)
[2024-12-18] MEDS ORDERED: LIDO-53 TP (21:31)
[2024-12-18] MEDS: LIDOCAINE 5% PATCH TOP SCH (22:30)
[2024-12-18] MEDS: ACETAMINOPHEN 500MG TABLET PO SCH (22:30)
[2024-12-18] MEDS: CYCLOBENZAPRINE 10MG TABLET PO ONE (23:34)
[2024-12-18] MEDS: IBUPROFEN 600MG TABLET PO ONE (23:34)
[2024-12-18] MEDS: GABAPENTIN 100MG CAPSULE PO ONE (23:34)
[2024-12-19 05:49] VITALS: BP 105/68; PULSE 86; RESP 13; O2SAT 97
== END 2024-12-19 05:58 | disposition home or self-care (01) ==
LOC: ER 18:37
DX: M54.50 Low back pain, unspecified (principal); E11.9 Type 2 diabetes mellitus without complications; I11.0 Hypertensive heart disease with heart failure; I50.9 Heart failure, unspecified; I69.30 Unspecified sequelae of cerebral infarction; J45.909 Unspecified asthma, uncomplicated; Z74.01 Bed confinement status; Z79.899 Other long term (current) drug therapy; Z79.890 Hormone replacement therapy; Z79.84 Long term (current) use of oral hypoglycemic drugs; Z79.82 Long term (current) use of aspirin
CPT/HCPCS: 74176; 99284